=== PATIENT | male | born 1945 | race Caucasian/White ===

== ENCOUNTER 2021-01-02 06:59 | Day surgery (SDC) | payer OTHER ==
[~2021-01-02] VITALS: Ht 186 cm; Wt 75.2 kg
[~2021-01-02 06:59] MED LIST: CYAN500 PO; FINA5 PO; Flomax0.4 MG PO; GLUCOSE PO; METF500 PO; OMEP20ER PO; PHENY100ER PO; PIOG15 PO; Prinivil10 MG PO; VITAMIN D310 MC5 PO; ZOCOR20 MG
[2021-01-02] MEDS ORDERED: PHENY100ER PO (07:52)
--- NOTE | 2021-01-02 09:51 | NUR ---
01/02/21 0951 Malu Botello PATIENT VODED BEFORE COMING TO THE OR.
--- NOTE | 2021-01-02 11:46 | NUR ---
Patient up to Ambulate independently. Gait steady. Discharge instructions reviewed with patient. Patient verbalizes understanding. Copy given to patient to take home. Dressing to procedure site clean, dry, intact with no visible drainage, swelling, erythema or bruising noted. Patient States Post-Procedure ride home has been arranged. Discharged via wheelchair to private car for ride home. ALL BELONINGS RETURNED TO PATIENT. SCROTAL SUPPORT PROVIDED.
== END 2021-01-02 11:50 | disposition home or self-care (01) ==
LOC: ORSCMMR 06:59 → ORD 08:45 → ORSCMMR 08:45
PROVIDERS: Surgery
PROC: 0YU50JZ Supplement Right Inguinal Region with Synthetic Substitute, Open Approach (ICD-10-PCS; principal; 2021-01-02 08:45)
DX: K40.91 Unilateral inguinal hernia, without obstruction or gangrene, recurrent (principal); I10 Essential (primary) hypertension; E11.9 Type 2 diabetes mellitus without complications; K21.9 Gastro-esophageal reflux disease without esophagitis; Z79.899 Other long term (current) drug therapy
CPT/HCPCS: 82947; C1781; J0690; J1100; J2250; J2370; J2405; J2704; J3010; J7120

== ENCOUNTER 2021-11-05 21:46 | Inpatient (IN) | payer OTHER ==
[~2021-11-05] VITALS: Ht 188 cm; Wt 77.2 kg
[2021-11-05 22:29] LABS: BASOPHILS ABSOLUTE AUTO 0.01 K/mm3 (0.00-0.23); BASOPHILS PERCENT AUTO 0 % (0-2); EOSINOPHILS PERCENT AUTO 0 % (0-6); Hematocrit 29.7 % (37.0-53.0); Hemoglobin 10.5 g/dL (13.5-17.5); IMMATURE GRAN ABSOLUTE AUTO 0.04 K/mm3 (0.00-0.10); IMMATURE GRAN PERCENT AUTO 1 % (0-1); LYMPHOCYTES ABSOLUTE AUTO 0.41 K/mm3 (0.84-5.20); LYMPHOCYTES PERCENT AUTO 5 % (21-46); MONOCYTES ABSOLUTE AUTO 0.57 K/mm3 (0.16-1.47); MONOCYTES PERCENT AUTO 7 % (4-13); Mean Corpuscular HGB 33.4 pg (26.0-34.0); Mean Corpuscular HGB Conc 35.4 g/dL (31.5-36.5); Mean Corpuscular Volume 95 fL (80-100); Mean Platelet Volume 10.2 fL (9.1-12.4); NEUTROPHILS ABSOLUTE AUTO 6.65 K/mm3 (1.96-9.15); NEUTROPHILS PERCENT AUTO 87 % (41-73); Platelet Count 141 K/mm3 (150-400); RDW Coefficient Variation 12.3 % (11.7-14.2); RDW Standard Deviation 42.9 fL (35.1-46.3); Red Blood Cell Count 3.14 M/mm3 (4.30-5.90); White Blood Cell Count 7.68 K/mm3 (4.00-11.30)
[2021-11-05 22:46] LABS: Albumin, Blood 3.7 g/dL (3.4-5.0); Albumin/Globulin Ratio 1.2 (0.8-1.8); Bilirubin, Total 0.4 mg/dL (0.1-1.0); Bun/Creatinine Ratio 18.2 (12.0-20.0); Calcium, Blood 8.4 mg/dL (8.5-10.1); Creatinine, Blood 2.03 mg/dL (0.60-1.20); Globulin, Blood 3.1 g/dL (2.2-4.0); Potassium, Blood 4.1 mmol/L (3.5-5.5); Total Protein, Blood 6.8 g/dL (6.4-8.2)
[2021-11-05 22:46] LABS: Source, Urine Clean Catch
[2021-11-05 22:56] LABS: Bilirubin, Urine Neg (Neg); Blood, Urine 2+ (Neg); Glucose Qualitative, Urine 4+ (Neg); Ketones, Urine Neg (Neg); Leukocyte Esterase, Urine Neg (Neg); Nitrite, Urine Neg (Neg); Protein, Urine 3+ (Neg); Specific Gravity, Urine 1.015 (1.003-1.022); Urobilinogen, Urine NORM (Normal)
[2021-11-05 23:03] LABS: Appearance, Urine Hazy (Clear); Color, Urine Yellow (P-Yellow)
[2021-11-05 23:04] LABS: Amorphous Mod (0-Heavy); Bacteria Mod /hpf; Mucus Light (0-Heavy); Squamous Epithelial Cells Few /hpf (Few)
[2021-11-06 00:07] LABS: Influenza A, PCR NEGATIVE (NEGATIVE); Influenza B, PCR NEGATIVE (NEGATIVE); Resp Syncytial Virus, PCR NEGATIVE (NEGATIVE); SARS-Cov-2 (COVID-19) PCR, MMC NEGATIVE (NEGATIVE)
[2021-11-06 01:59] LABS: BASOPHILS ABSOLUTE AUTO 0.01 K/mm3 (0.00-0.23); BASOPHILS PERCENT AUTO 0 % (0-2); EOSINOPHILS PERCENT AUTO 0 % (0-6); Hematocrit 26.9 % (37.0-53.0); Hemoglobin 9.7 g/dL (13.5-17.5); IMMATURE GRAN ABSOLUTE AUTO 0.15 K/mm3 (0.00-0.10); IMMATURE GRAN PERCENT AUTO 2 % (0-1); LYMPHOCYTES ABSOLUTE AUTO 0.43 K/mm3 (0.84-5.20); LYMPHOCYTES PERCENT AUTO 6 % (21-46); MONOCYTES ABSOLUTE AUTO 0.42 K/mm3 (0.16-1.47); MONOCYTES PERCENT AUTO 6 % (4-13); Mean Corpuscular HGB 34.3 pg (26.0-34.0); Mean Corpuscular HGB Conc 36.1 g/dL (31.5-36.5); Mean Corpuscular Volume 95 fL (80-100); Mean Platelet Volume 9.9 fL (9.1-12.4); NEUTROPHILS ABSOLUTE AUTO 6.41 K/mm3 (1.96-9.15); NEUTROPHILS PERCENT AUTO 86 % (41-73); Platelet Count 138 K/mm3 (150-400); RDW Coefficient Variation 12.3 % (11.7-14.2); RDW Standard Deviation 43.3 fL (35.1-46.3); Red Blood Cell Count 2.83 M/mm3 (4.30-5.90); White Blood Cell Count 7.42 K/mm3 (4.00-11.30)
[2021-11-06 02:08] LABS: International Normalized Ratio 1.09; Prothrombin Time Results 11.4 Sec (9.7-11.5)
[2021-11-06 02:13] LABS: Albumin, Blood 3.4 g/dL (3.4-5.0); Albumin/Globulin Ratio 1.1 (0.8-1.8); Bilirubin, Total 0.3 mg/dL (0.1-1.0); Bun/Creatinine Ratio 18.8 (12.0-20.0); Calcium, Blood 8.1 mg/dL (8.5-10.1); Creatinine, Blood 1.91 mg/dL (0.60-1.20); Total Protein, Blood 6.4 g/dL (6.4-8.2)
--- NOTE | 2021-11-06 05:03 | NUR ---
EVENT NOTE CHANGE IN PT TEMPERATURE FROM 99.7 AT 0255 TO 105.0 TO 0426. CHANGE IN MENTATION. INCREASINGLY CONFUSED, UNABLE TO STAND UP AND URINATE ON HIS OWN WHICH HE WAS PREVIOUSLY ABLE TO DO AN HR PRIOR. HOT TO TOUCH ALL OVER. CATHERINE TEMP PROBE IN PLACE READING 104.7. TYLENOL 650 ADMINISTERED. COOLING BLANKET AND ICE PACKS IN PLACE. PROVIDER NEVIN AWARE. ASPIRIN 250MG PO X1 ORDERED
--- NOTE | 2021-11-06 06:20 | NUR ---
SHIFT SUMMARY PT ALERT AND ORIENTED X4 ON ARRIVAL TO UNIT FROM ED AT 0150. TEMP OF 102.5. ABLE TO AMBULATE INDEPENDENTLY. TEMP DROPPED TO 99.7 AT 0255 BEFORE RISING TO 105.0 AT 0426. TEMP CATHERINE IN PLACE FOR CONTINUOUS MONITORING. TYLENOL, ASPIRIN AND ICE PACKS AND BLANKET USED TO BRING TEMP TO CURRENT TEMP OF 101.4. BP STABLE. ON RA SATS OVER 94%. NOW CONFUSED, ATTEMPTED TO GET UP TO URINATE WITH CATHERINE IN PLACE. RESTING, WITH NO C/O PAIN OR DISCOMFORT. IN BED WITH BED ALARM ON AND CALL ALARM AT SIDE, WILL CONTINUE TO MONITOR UNTIL REPORT GIVEN TO LALI CERON
[2021-11-06 08:46] LABS: Test Name PHENYTOIN F&T
[2021-11-06 10:01] LABS: Influenza A, PCR NEGATIVE (NEGATIVE); Influenza B, PCR NEGATIVE (NEGATIVE); Resp Syncytial Virus, PCR NEGATIVE (NEGATIVE); SARS-Cov-2 (COVID-19) PCR, MMC NEGATIVE (NEGATIVE)
[2021-11-06] MEDS ORDERED: FAMO20 PO (12:29)
[2021-11-06] MEDS ORDERED: INSULANI SC (12:31)
--- NOTE | 2021-11-06 14:48 | NUR ---
MD NOTIFICATION T =101.1f after PRN Tylenol administration. Cooling measures remain in place. ordered Motrin 400mg x1.
--- NOTE | 2021-11-06 21:36 | NUR ---
CARE ASSUMPTION: RECEIVED REPORT FROM JOHN, RN. PATIENT WATCHING TV IN BED, TEMP <100*, A&O X3. FRIENDLY AND COOPERATIVE WITH CARE. AIDE PROVIDED ORAL CARE ITEMS AND PATIENT CARED FOR HIMSELF. NS RUNNING PER EMAR. BED LOW AND CALL LIGHT IN REACH.
--- NOTE | 2021-11-06 22:51 | NUR ---
MD RALPH CALLED FOR PATIENT UPDATE. ALERTED MD TO GRAM+ [employer]. THE PLAN PER MD IS TO START VANCOMYCIN PER PHARMACY PROTOCOL IF TEMP >100*.
[2021-11-07 04:27] LABS: BASOPHILS ABSOLUTE AUTO 0.02 K/mm3 (0.00-0.23); BASOPHILS PERCENT AUTO 0 % (0-2); EOSINOPHILS PERCENT AUTO 0 % (0-6); Hematocrit 27.1 % (37.0-53.0); Hemoglobin 9.4 g/dL (13.5-17.5); IMMATURE GRAN ABSOLUTE AUTO 0.04 K/mm3 (0.00-0.10); IMMATURE GRAN PERCENT AUTO 1 % (0-1); LYMPHOCYTES ABSOLUTE AUTO 0.93 K/mm3 (0.84-5.20); LYMPHOCYTES PERCENT AUTO 11 % (21-46); MONOCYTES ABSOLUTE AUTO 0.44 K/mm3 (0.16-1.47); MONOCYTES PERCENT AUTO 5 % (4-13); Mean Corpuscular HGB 33.6 pg (26.0-34.0); Mean Corpuscular HGB Conc 34.7 g/dL (31.5-36.5); Mean Corpuscular Volume 97 fL (80-100); Mean Platelet Volume 10.3 fL (9.1-12.4); NEUTROPHILS PERCENT AUTO 83 % (41-73); Platelet Count 114 K/mm3 (150-400); RDW Coefficient Variation 12.4 % (11.7-14.2); RDW Standard Deviation 44.4 fL (35.1-46.3); White Blood Cell Count 8.13 K/mm3 (4.00-11.30)
[2021-11-07 04:49] LABS: Albumin, Blood 2.9 g/dL (3.4-5.0); Albumin/Globulin Ratio 0.9 (0.8-1.8); Bilirubin, Total 0.4 mg/dL (0.1-1.0); Bun/Creatinine Ratio 19.5 (12.0-20.0); Calcium, Blood 8.5 mg/dL (8.5-10.1); Globulin, Blood 3.2 g/dL (2.2-4.0); Potassium, Blood 4.2 mmol/L (3.5-5.5); Total Protein, Blood 6.1 g/dL (6.4-8.2)
--- NOTE | 2021-11-07 05:56 | NUR ---
SHIFT SUMMARY: PATIENT DENIES CHEST PAIN, SOB, OR OTHER DISCOMFORT. PATIENT'S BP, RR, AND HR WNL. TEMP WAS <100 UNTIL ~0500 WHEN IT REACHED 100.2. TYLENOL WAS ADMINISTERED PER EMAR WITH NO CHANGE IN TEMP UPON REASSESSMENT AT 0600. PATIENT IS RESTING COMFORTABLY IN BED WITH "ICE BLANKET," BED LOW, CATHERINE DRAINING TO GRAVITY, CALL LIGHT IN PLACE. WILL CONTINUE TO MONITOR AND REPORT TO ONCOMING RN.
--- NOTE | 2021-11-07 18:44 | NUR ---
Shift Summary VSS. Temp remained <100.0f throughout shift. No c/o pain. FC removed- bladder scan= 209 mL 4 hrs post removal, pt declined to self cath at this time. BM x1. Tolerating current diet. Frequent rounds to ensure pt safety. Pt in no apparent distress at this time. Will continue to monitor until transfer of care to oncoming RN.
--- NOTE | 2021-11-07 21:59 | NUR ---
CARE ASSUMPTION: RECEIVED REPORT FROM JOHN, RN. PATIENT SITTING IN BED TALKING WITH STAFF. A&O X4, VS WNL ON RA. PATIENT IS CONCERNED ABOUT HIS CBG BEING CONSISTENTLY HIGH. EDUCATED ON STRESS AND INFECTION'S INFLUENCE ON BLOOD SUGARS.
--- NOTE | 2021-11-08 06:43 | NUR ---
SHIFT SUMMARY: PATIENT A&O X4, VSS T/O SHIFT ON RA. PROVIDED EDUCATION R/T INFECTION PREVENTION, STRAIGHT CATHETERIZATION, AND BLOOD SUGAR MANAGEMENT IN PRESENCE OF INFECTION/STRESS. FRIENDLY AND COOPERATIVE WITH CARE - VERY TALKATIVE. AMBULATES TO TOILET AND USES URINAL IN BATHROOM. WILL REPORT TO ONCOMING RN.
--- NOTE | 2021-11-08 11:29 | NUR ---
BLADDER SCAN PERFORMED POST VOID WITH 297ML OR URINE NOTED IN BLADDER PER SCAN, PT EXPRESSED UNDERSTANDING OF ORDERS AND STS THAT HE ONLY CATHS TWICE A DAY AT HOME AND REFUSED STRAIGHT CATH UNTIL HE FEELS URGE TO URINATE, WILL CONTINUE TO REASSESS BLADDER SCAN
--- NOTE | 2021-11-08 17:51 | NUR ---
SHIFT SUMMARY PT IS A&O X 4, VSS T/O THE SHIFT ON RA. PT WAS FRIENDLY AND COOPERATIVE WITH CARE T/O THE SHIFT. PT IS ABLE TO AMBULATE TO THE [facility] TO VOID BETWEEN 120-170ML AT A TIME. PT HAS UNDERGONE BLADDER SCANS Q4HRS AND OFTEN RETAINED 320-360ML OF URINE. PT REFUSED STRAIGHT CATH UNTILL THIS PM. PT WILL BE EDUCATED ON HOW TO SAFELY PERFROM STRAIGHT CATH PROCEDURE WELL IMPORTANCE OF MAINTAINING STERILE PROCESSES T/O THE PROCEDURE. PT CBG CONTROLLED WITH INSLUIN ORDERED ON EMAR. NKDN
--- NOTE | 2021-11-08 18:36 | NUR ---
STRAIGHT CATH PERFORMED, PT EDCUATED ABOUT SELF CATHING PROPER CLEAN STANARD TECHNIQUE TAUGHT, PT EXPRESSED UNDERSTANDING. PT REPORTS THAT HE PLANS TO DO A RETURN DEMONSTRATION TOMORROW.
[2021-11-09 04:44] LABS: BASOPHILS ABSOLUTE AUTO 0.01 K/mm3 (0.00-0.23); BASOPHILS PERCENT AUTO 0 % (0-2); EOSINOPHILS PERCENT AUTO 0 % (0-6); Hematocrit 25.1 % (37.0-53.0); Hemoglobin 8.6 g/dL (13.5-17.5); IMMATURE GRAN ABSOLUTE AUTO 0.02 K/mm3 (0.00-0.10); IMMATURE GRAN PERCENT AUTO 1 % (0-1); LYMPHOCYTES ABSOLUTE AUTO 0.99 K/mm3 (0.84-5.20); LYMPHOCYTES PERCENT AUTO 26 % (21-46); MONOCYTES PERCENT AUTO 8 % (4-13); Mean Corpuscular HGB 32.7 pg (26.0-34.0); Mean Corpuscular HGB Conc 34.3 g/dL (31.5-36.5); Mean Corpuscular Volume 95 fL (80-100); Mean Platelet Volume 10.7 fL (9.1-12.4); NEUTROPHILS ABSOLUTE AUTO 2.43 K/mm3 (1.96-9.15); NEUTROPHILS PERCENT AUTO 65 % (41-73); Platelet Count 131 K/mm3 (150-400); RDW Coefficient Variation 12.3 % (11.7-14.2); RDW Standard Deviation 43.5 fL (35.1-46.3); Red Blood Cell Count 2.63 M/mm3 (4.30-5.90); White Blood Cell Count 3.75 K/mm3 (4.00-11.30)
[2021-11-09 05:07] LABS: Albumin, Blood 2.7 g/dL (3.4-5.0); Albumin/Globulin Ratio 0.8 (0.8-1.8); Bilirubin, Total 0.3 mg/dL (0.1-1.0); Bun/Creatinine Ratio 21.8 (12.0-20.0); Calcium, Blood 8.5 mg/dL (8.5-10.1); Creatinine, Blood 2.06 mg/dL (0.60-1.20); Globulin, Blood 3.3 g/dL (2.2-4.0); Potassium, Blood 4.4 mmol/L (3.5-5.5)
--- NOTE | 2021-11-09 06:23 | NUR ---
SHIFT SUMMARY: PATIENT AMBULATED Q1-2 HRS TO TOILET WITH TOTAL OUTPUT OF 1400. BLADDER SCAN AT 0500 SHOWED >600 MLS AND STRAIGHT CATH HAD 775 MLS OUTPUT. VSS T/O SHIFT, NO ADVERSE EVENTS. PATIENT HOPES TO GO HOME TODAY. WILL CONTINUE TO MONITOR AND REPORT TO ONCOMING RN.
[2021-11-09] MEDS ORDERED: AMOCLA875 PO (13:16)
== END 2021-11-09 14:10 | disposition home or self-care (01) | DRG 698 ==
LOC: ER 21:46 → PCU 21:47
PROVIDERS: Internal Medicine; Physician Assistant; Student in an Organized Health Care Education/Training Program; ADMIT Internal Medicine
DX: T83.518A Infection and inflammatory reaction due to other urinary catheter, initial encounter (principal); A41.1 Sepsis due to other specified staphylococcus; G93.41 Metabolic encephalopathy; N13.8 Other obstructive and reflux uropathy; N17.9 Acute kidney failure, unspecified; D61.818 Other pancytopenia; N13.6 Pyonephrosis; E87.2 Acidosis; N40.1 Benign prostatic hyperplasia with lower urinary tract symptoms; Z87.891 Personal history of nicotine dependence; N18.30 Chronic kidney disease, stage 3 unspecified; D63.1 Anemia in chronic kidney disease; E78.5 Hyperlipidemia, unspecified; Z79.899 Other long term (current) drug therapy; R73.9 Hyperglycemia, unspecified; Z20.822 Contact with and (suspected) exposure to COVID-19
CPT/HCPCS: 0241U; 36415; 51700; 51701; 71045; 74176; 80053; 81001; 82947; 83605; 83880; 84484; 85025; 85610; 87040; 87077; 87086; 87186; 93005; 93010; 94760; 96374; 99285-25; A9270; J0696; J1815; J1956; J7030